=== PATIENT | female | born 1970 | race Caucasian/White ===

== ENCOUNTER 2018-03-18 20:01 | Emergency (ER) | payer OTHER ==
[2018-03-18 20:19] VITALS: RESP 20; TEMP 98.9; O2SAT 97
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
[2018-03-18 22:02] VITALS: BP 147/86; PULSE 71
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
== END 2018-03-18 22:23 | disposition home or self-care (01) ==
LOC: C.ER 20:01
DX: S43.401A Unspecified sprain of right shoulder joint, initial encounter (principal); V49.59XA Passenger injured in collision with other motor vehicles in traffic accident, initial encounter; W22.11XA Striking against or struck by driver side automobile airbag, initial encounter; Y92.410 Unspecified street and highway as the place of occurrence of the external cause